=== PATIENT | male | born 1990 | race Caucasian/White ===

== ENCOUNTER → 2017-09-27 | Outpatient (REF) | payer OTHER | LOC: ZZPBJ 15:38 | PROVIDERS: ATTEND Orthopaedic Surgery Hand Surgery | DX: M25.562 Pain in left knee (principal); M25.462 Effusion, left knee; B95.7 Other staphylococcus as the cause of diseases classified elsewhere | CPT/HCPCS: 87070; 87077; 87186; 87205 ==

== ENCOUNTER 2018-07-26 06:02 | Emergency (ER) | payer OTHER ==
[2018-07-26 06:03] VITALS: BP 131/102
--- NOTE | 2018-07-26 06:13 | ER Report ---
History and Physical Time Seen By MD: 06:03 Hx. of Stated Complaint: found on the sidewalk in front of police station. etoh. swelling, diformity, laceration, skin flap to nose HPI/ROS CHIEF COMPLAINT: Nose laceration, found intoxicated HISTORY OF PRESENT ILLNESS: 27-year-old male presents ambulatory with police under arrest for public intoxication. He apparently fell, sustained a laceration to his nose. He appears to have swelling to his nose consistent with a nasal fracture. Patient denies headache, neck pain, nausea or vomiting. Patient is to heavy alcohol ingestion. REVIEW OF SYSTEMS: Respiratory: No cough, no dyspnea. Cardiovascular: No chest pain, no palpitations. Gastrointestinal: No vomiting, no abdominal pain. Musculoskeletal: No back pain. Allergies: Coded Allergies: Sulfa (Sulfonamide Antibiotics) (Verified Allergy, Unknown, 07/26/18) Home Meds No Active Prescriptions or Reported Meds Reviewed Nurses Notes: Yes Old Medical Records Reviewed: Yes Hx Substance Use Disorder: No Hx Alcohol Use: Yes Constitutional Vital Sign - Last 24 Hours 07/26/18 06:03 Temp 97.8 Pulse 100 Resp 12 B/P (MAP) 131/102 Pulse Ox 100 O2 Delivery Room Air Physical Exam Vital signs stable, afebrile, pulse ox normal General Appearance: The patient is alert, has no immediate need for airway protection and no current signs of toxicity. Palpation of the head and neck reveals no tenderness or trauma except there is soft tissue swelling over the bridge of the nose. There is a large flap laceration between the eyes on the bridge of the nose. Oximetry 3 cm in length. HEENT: Pupils equal and round no injection. TMs normal, EOMI, PERRLA, Respiratory: Chest is non tender, lungs are clear to auscultation. Cardiac: regular rate and rhythm Gastrointestinal: Abdomen is soft and non tender, no masses, bowel sounds normal. Musculoskeletal: Neck: Neck is supple and non tender. Extremities have full range of motion and are non tender. Skin: No rashes or lesions. DIFFERENTIAL DIAGNOSIS: After history and physical exam differential diagnosis was considered for head injury including but not limited to concussion, skull fracture, intraparenchymal contusion, subarachnoid, subdural and epidural hematoma. Additionally, facial contusion, facial laceration, facial bone fracture. Medical Decision Making ED Course/Re-evaluation ED Course Patient was admitted to an examination room and H&P was done. The differential diagnoses was considered. Patient with gross alcohol intoxication. He fell and sustained a nose laceration and likely notes fracture. His laceration was repaired as noted above. Patient was medically cleared for long term admission. He's advised to follow-up with ENT if his nose appears crooked after the swelling has resolved in for 5 days. He is given information follow-up with Dr. Bertrand Alicea ENT. Procedure: Laceration repair. Verbal consent was obtained from the patient. The 3.0 cm laceration on the bridge of the nose flap was anesthetized in the usual fashion. The wound was scrubbed, draped and explored to its base with a gloved finger. There were no deep structures involved. The wound was repaired with 5-0 Prolene 4 sutures. The wound repair was simple. The procedure was performed by myself. Decision to Disposition Date: Jul 26, 2018 Decision to Disposition Time: 06:17 Depart Departure Latest Vital Signs Vital Signs Date Time Temp Pulse Resp B/P (MAP) Pulse Ox O2 Delivery O2 Flow Rate FiO2 07/26/18 06:03 97.8 100 12 131/102 100 Room Air Impression: Primary Impression: Nasal laceration Additional Impressions: Nasal bone fracture Alcohol intoxication Medical clearance for incarceration Condition: Improved Disposition: [facility] TO [facility]/CORRECTIONAL F Referrals: BERTRAND ALICEA JR, MD New Scripts No Active Prescriptions or Reported Meds Patient Instructions: Alcohol Intoxication (ED), Facial Laceration (ED), Nasal Fracture (ED) Additional Instructions: Have stitches removed in 5 days Follow-up with Dr. Bertrand Alicea ENT if nose appears crooked in 5-7 days for reevaluation Problem Qualifiers Primary Impression: Nasal laceration Encounter type: initial encounter Qualified Codes: S01.21XA - Laceration without foreign body of nose, initial encounter Additional Impressions: Nasal bone fracture Encounter type: initial encounter Fracture type: closed Qualified Codes: S02.2XXA - Fracture of nasal bones, initial encounter for closed fracture Alcohol intoxication Complication of substance-induced condition: uncomplicated Qualified Codes: F10.920 - Alcohol use, unspecified with intoxication, uncomplicated VONSHANTI De La O Jul 26, 2018 06:13
[2018-07-26] MEDS ORDERED: DIPHTH/TETANUS/ACEL. PERTUSSIS IM ONLY ONE (06:15)
== END 2018-07-26 06:34 | disposition home or self-care (01) ==
LOC: ER 06:12
DX: S01.21XA Laceration without foreign body of nose, initial encounter (principal); S02.2XXA Fracture of nasal bones, initial encounter for closed fracture; F10.920 Alcohol use, unspecified with intoxication, uncomplicated
CPT/HCPCS: 90471; 90715; 99283

== ENCOUNTER → 2018-07-26 | Outpatient (CLI) | payer OTHER | LOC: AMB 05:54 | PROVIDERS: ATTEND Nurse Practitioner | DX: S01.21XA Laceration without foreign body of nose, initial encounter (principal); R41.82 Altered mental status, unspecified; F10.121 Alcohol abuse with intoxication delirium | CPT/HCPCS: A0425; A0429 ==